=== PATIENT | male | born 1940 | race Caucasian/White ===

== ENCOUNTER 2020-07-04 09:12 | Outpatient (CLI) | payer MEDICARE, MEDICAID, SELFPAY | END 2020-07-04 09:13 | disposition home or self-care (01) | LOC: ANHBWCAUD 09:14 | DX: H90.3 Sensorineural hearing loss, bilateral (principal) | CPT/HCPCS: 92557; 92567 ==

== ENCOUNTER 2023-07-08 08:02 | Outpatient (CLI) | payer MEDICARE, MEDICAID, SELFPAY | END 2023-07-08 08:03 | disposition home or self-care (01) | DX: H90.3 Sensorineural hearing loss, bilateral (principal) | CPT/HCPCS: 92557; 92567 ==